=== PATIENT | male | born 1960 | race Asian ===

== ENCOUNTER 2018-12-16 15:30 | Inpatient (IN) | payer OTHER ==
[~2018-12-16] VITALS: Ht 170.2 cm; Wt 87.1 kg
[2018-12-16] VITALS (8 sets, daily range): BP systolic 180–201; BP diastolic 106–127
[2018-12-16 16:09] LABS: BASOPHILS % 0.4 % (0.0-2.0); EOSINOPHILS % 0.3 % (0.0-5.0); HEMATOCRIT. 45.9 % (42.0-52.0); HEMOGLOBIN. 15.9 g/dL (14.0-18.0); LYMPHOCYTES % 10.6 % (20.0-50.0); MEAN CORPUSCULAR HEMOGLOBIN 31.7 pg (28.0-32.0); MEAN CORPUSCULAR VOLUME 91.7 fL (80.0-94.0); MEAN PLATELET VOLUME 9.3 fl (7.4-10.4); MONOCYTES % 4.7 % (2.0-8.0); PLATELET 309 x1000/uL (130-400); RED BLOOD CELL COUNT 5.01 mill/uL (4.7-6.1); RED CELL DISTRIBUTION WIDTH 13.4 % (11.6-14.6)
[2018-12-16 16:14] LABS: CHLORIDE 106 mEq/L (98-107)
[2018-12-16 16:18] LABS: ETHANOL BLOOD < 10 mg/dL
[2018-12-16 16:33] LABS: CLARITY URINE CLEAR (CLEAR); COLOR URINE YELLOW (YELLOW); KETONES URINE NEGATIVE (NEGATIVE); LEUKOCYTE ESTERASE URINE NEGATIVE (NEGATIVE); NITRITE URINE NEGATIVE (NEGATIVE); OCCULT BLOOD URINE NEGATIVE (NEGATIVE); PH URINE 7.5 (4.5-8.0); PROTEIN URINE TRACE (NEGATIVE); SPECIFIC GRAVITY URINE 1.005 (1.005-1.030); UROBILINOGEN URINE 0.2 E.U./dL (0.2-1.0)
[2018-12-16 16:44] LABS: *AMPHETAMINES SCREEN URINE NEGATIVE (NEGATIVE); *BARBITURATES SCREEN URINE NEGATIVE (NEGATIVE); *BENZODIAZEPINES SCREEN URINE NEGATIVE (NEGATIVE); *COCAINE SCREEN URINE NEGATIVE (NEGATIVE)
[2018-12-16 16:45] LABS: CANNABINOID URINE SCREEN NEGATIVE (NEGATIVE); METHADONE URINE SCREEN NEGATIVE (NEGATIVE); OPIATES URINE SCREEN NEGATIVE (NEGATIVE); PHENCYCLIDINE URINE SCREEN NEGATIVE (NEGATIVE)
[2018-12-16] MEDS ORDERED: HYDRALAZINE 20MG/ML VIAL IV ONE (17:00)
[2018-12-16] MEDS ORDERED: HYDRALAZINE HCL 50MG TABLET PO ONE (18:15)
[2018-12-16] MEDS ORDERED: MAGNESIUM/ALUMINUM HYDROXIDE/SIMETHICONE 30ML UDC PO PRN (19:45)
[2018-12-16] MEDS ORDERED: DIPHENHYDRAMINE 50MG/ML VIAL IV PRN (19:45)
[2018-12-16] MEDS ORDERED: DOCUSATE SODIUM 100MG CAPSULE PO PRN (19:45)
[2018-12-16] MEDS ORDERED: IPRATROPIUM/ALBUTEROL 0.5-3(2.5)MG/3ML NEB INH PRN (19:45)
[2018-12-16] MEDS ORDERED: ACETAMINOPHEN 325MG TABLET PO PRN (19:45)
[2018-12-16] MEDS ORDERED: NICARDIPINE 40MG/200ML PREMIX 200 ML IV SCH (19:45)
[2018-12-16] MEDS ORDERED: HYDROCODONE/ACETAMINOPHEN 5/325MG TABLET PO PRN (19:45)
[2018-12-16] MEDS ORDERED: GUAIFENESIN 200MG/10ML SUGAR FREE UDC PO PRN (19:45)
[2018-12-16] MEDS ORDERED: ONDANSETRON HCL 4MG/2ML INJ IV PRN (19:45)
[2018-12-16 20:00] LABS: PHOSPHORUS 2.4 mg/dL (2.5-4.9)
[2018-12-16] MEDS ORDERED: DEXTROSE 50% WATER 50ML SYRINGE IV PRN (21:30)
[2018-12-16] MEDS: NICARDIPINE 50 MG in SODIUM CHLORIDE 0.9% 230 ML IV PRN (22:43)
[2018-12-17] VITALS (92 sets, daily range): BP systolic 116–154; BP diastolic 63–113
[2018-12-17] MEDS: MORPHINE SULFATE 2 MG/ML CPJ (NOT FOR IM USE) IV PRN ×2 (00:03→12:20)
[2018-12-17] MEDS ORDERED: LABETALOL 5MG/ML SYR 20 MG/4 ML SYRINGE IV PRN (00:45)
[2018-12-17] MEDS: NICARDIPINE 50 MG in SODIUM CHLORIDE 0.9% 230 ML IV PRN ×3 (02:38→16:43)
[2018-12-17 05:37] LABS: CHLORIDE 106 mEq/L (98-107)
[2018-12-17 05:40] LABS: BASOPHILS % 0.4 % (0.0-2.0); EOSINOPHILS % 0.1 % (0.0-5.0); HEMATOCRIT. 43.8 % (42.0-52.0); HEMOGLOBIN. 15.1 g/dL (14.0-18.0); LYMPHOCYTES % 11.3 % (20.0-50.0); MEAN CORPUSCULAR HEMOGLOBIN 31.7 pg (28.0-32.0); MEAN PLATELET VOLUME 9.7 fl (7.4-10.4); MONOCYTES % 4.5 % (2.0-8.0); NEUTROPHILS % 83.7 % (40.0-76.0); PLATELET 298 x1000/uL (130-400); RED BLOOD CELL COUNT 4.76 mill/uL (4.7-6.1); RED CELL DISTRIBUTION WIDTH 13.1 % (11.6-14.6)
[2018-12-17 05:50] LABS: LDL CHOLESTEROL 141 mg/dL (5-100)
[2018-12-17 05:51] LABS: CREATINE KINASE 259 IU/L (39-308)
[2018-12-17 05:52] LABS: HDL CHOLESTEROL 42 mg/dL (40-59)
[2018-12-17 05:56] LABS: CREATINE KINASE MB FRACTION 3.2 ng/mL (0.5-3.6)
[2018-12-17] MEDS: BLOOD SUGAR DIAGNOSTIC STRIP TEST SCH ×4 (06:37→21:00)
[2018-12-17] MEDS ORDERED: BLOOD SUGAR DIAGNOSTIC STRIP TEST SCH (06:50)
[2018-12-17] MEDS: INSULIN LISPRO 100 UNITS/ML SUBCUT SCH ×4 (06:56→21:00)
[2018-12-17] MEDS ORDERED: INSULIN LISPRO 100 UNITS/ML SUBCUT SCH (07:20)
[2018-12-17] MEDS: ENOXAPARIN 40MG/0.4ML SYR SUBCUT SCH (12:21)
[2018-12-17] MEDS ORDERED: POTASSIUM CHLORIDE 20MEQ TABLET SR PO NR (14:45)
[2018-12-17] MEDS: CLOPIDOGREL 75MG TABLET PO SCH (15:21)
[2018-12-17] MEDS: BENAZEPRIL 10MG TABLET PO SCH (15:22)
[2018-12-17] MEDS ORDERED: ATORVASTATIN CALCIUM 40MG TABLET PO SCH (21:00)
[2018-12-18] VITALS (59 sets, daily range): BP systolic 118–178; BP diastolic 62–129
[2018-12-18 05:38] LABS: BASOPHILS % 0.3 % (0.0-2.0); EOSINOPHILS % 0.7 % (0.0-5.0); HEMOGLOBIN. 15.1 g/dL (14.0-18.0); LYMPHOCYTES % 21.1 % (20.0-50.0); MEAN CORPUSCULAR HEMOGLOBIN 31.6 pg (28.0-32.0); MEAN CORPUSCULAR VOLUME 92.3 fL (80.0-94.0); NEUTROPHILS % 70.9 % (40.0-76.0); PLATELET 294 x1000/uL (130-400); RED BLOOD CELL COUNT 4.77 mill/uL (4.7-6.1); RED CELL DISTRIBUTION WIDTH 13.5 % (11.6-14.6)
[2018-12-18 05:49] LABS: CHLORIDE 106 mEq/L (98-107)
[2018-12-18] MEDS: BLOOD SUGAR DIAGNOSTIC STRIP TEST SCH ×4 (06:30→21:51)
[2018-12-18] MEDS: INSULIN LISPRO 100 UNITS/ML SUBCUT SCH ×4 (07:00→21:00)
[2018-12-18] MEDS: CLOPIDOGREL 75MG TABLET PO SCH (08:28)
[2018-12-18] MEDS: BENAZEPRIL 10MG TABLET PO SCH (08:28)
[2018-12-18] MEDS: ENOXAPARIN 40MG/0.4ML SYR SUBCUT SCH (08:28)
[2018-12-18] MEDS ORDERED: ATOR80TA PO (15:02)
[2018-12-18] MEDS ORDERED: AMLO5TAB4 PO (15:03)
[2018-12-18] MEDS ORDERED: LISI40TA4 PO (15:04)
[2018-12-18] MEDS ORDERED: CLOP75TA4 PO (15:05)
[2018-12-18] MEDS ORDERED: AMLODIPINE 5MG TABLET PO NR (18:00)
[2018-12-18] MEDS: AMLODIPINE 5MG TABLET PO SCH (18:02)
[2018-12-18] MEDS ORDERED: BENAZEPRIL 10MG TABLET PO NR (18:30)
[2018-12-18] MEDS ORDERED: HYDRALAZINE HCL 50MG TABLET PO SCH (19:00)
[2018-12-18] MEDS ORDERED: ATORVASTATIN CALCIUM 40MG TABLET PO SCH (21:00)
[2018-12-19] VITALS (12 sets, daily range): BP systolic 117–153; BP diastolic 76–96
[2018-12-19] MEDS: INSULIN LISPRO 100 UNITS/ML SUBCUT SCH (06:52)
[2018-12-19] MEDS: BLOOD SUGAR DIAGNOSTIC STRIP TEST SCH (06:52)
[2018-12-19] MEDS: CLOPIDOGREL 75MG TABLET PO SCH (08:56)
[2018-12-19] MEDS: ENOXAPARIN 40MG/0.4ML SYR SUBCUT SCH (08:56)
[2018-12-19] MEDS: AMLODIPINE 5MG TABLET PO SCH (08:56)
[2018-12-19] MEDS ORDERED: BENAZEPRIL 10MG TABLET PO SCH ×2 (09:00)
[2018-12-19] MEDS ORDERED: HYDRALAZINE HCL 50MG TABLET PO SCH (09:00)
[2018-12-19] MEDS ORDERED: CLOP75TA15 PO (09:31)
[2018-12-19] MEDS ORDERED: HYDR-4135 PO (09:31)
[2018-12-19] MEDS ORDERED: AMLO5TAB88 PO (09:31)
[2018-12-19] MEDS ORDERED: LIP40 PO (09:31)
[2018-12-19] MEDS ORDERED: LOT10 PO (09:31)
== END 2018-12-19 13:00 | disposition home or self-care (01) | DRG 65 ==
LOC: ER 15:30 → 3WST 18:13 → ENRESERV 18:28 → MICUSO 22:07
PROVIDERS: ADMIT Internal Medicine; ATTEND Internal Medicine
PROC: 4A10X4Z Monitoring of Central Nervous Electrical Activity, External Approach (ICD-10-PCS; principal; 2018-12-18)
DX: I63.81 Other cerebral infarction due to occlusion or stenosis of small artery (principal); I16.1 Hypertensive emergency; R73.9 Hyperglycemia, unspecified; I65.21 Occlusion and stenosis of right carotid artery; E78.5 Hyperlipidemia, unspecified; I10 Essential (primary) hypertension; Z82.3 Family history of stroke; Z87.891 Personal history of nicotine dependence; Z86.73 Personal history of transient ischemic attack (TIA), and cerebral infarction without residual deficits
CPT/HCPCS: 36415; 70551; 71045; 80048; 80061; 80305; 80320; 82550; 82553; 82962; 83036; 83735; 84100; 84443; 93005; 93306; 93880; 93970; 95816; 96374; 96375; 97112; 97116; 97162; 99285; J0360; J1650; J2270; J2405; J3490; J7050; G0480